=== PATIENT | male | born 1965 | race Hispanic/Latino ===

== ENCOUNTER → 2018-08-23 | Outpatient (CLI) | payer BC ==
--- NOTE | 2018-08-23 16:45 | Diagnostic Imaging Report ---
Exam: Right knee 3 views History: Pain Comparison: None. Findings: No acute, displaced fracture or dislocation. Joint space is well-maintained. Small nonspecific suprapatellar joint effusion. Quadriceps tendinosis. Soft tissues otherwise unremarkable. Nonaggressive appearing sclerotic focus in the medial proximal tibial metaphysis likely represents a bone island. Impression: No acute osseous abnormality. Small nonspecific suprapatellar joint effusion. Signed by: Dr. Erick Woodruff M.D. on 08/23/2018 4:42 PM
== END ==
LOC: RAD 16:10
PROVIDERS: ATTEND Family Medicine
DX: M25.561 Pain in right knee (principal)